=== PATIENT | female | born 1985 | race African-American/Black ===

== ENCOUNTER 2025-03-09 00:29 | Inpatient (IN) | payer OTHER, SELFPAY ==
[2025-03-09] VITALS (14 sets, daily range): BP systolic 100–154; BP diastolic 62–98; PULSE 46–98; RESP 12–18; TEMP 35.1–36.8; O2SAT 95–100; BMI 28.5
--- NOTE | ~2025-03-09 | CT_ITS ---
CLINICAL HISTORY: Pyelonephritis CT abdomen and pelvis with contrast Comparison: None provided Findings: There are mild dependent hypoventilatory changes. No focal pulmonary infiltrates or pleural effusions. No focal organ mass lesions. There is mild gallbladder distention. Pancreatic duct is borderline prominent measuring 2.2 mm. There is mild inhomogeneous enhancement of the kidneys. No perirenal fluid collections abscesses. No hydronephrosis no visualized renal calculi No bowel obstruction, pneumoperitoneum, or pneumatosis. There is a moderate colonic fecal load. The appendix is unremarkable. There are multiple intra-abdominal surgical clips. There is mild distended bladder. There is mild bladder wall thickening. Pelvic contents otherwise unremarkable. Normal appendix. There are multiple intra-abdominal surgical clips. The bones are intact. There are mild bilateral SI joint erosions in mild sclerosis [id number]. There is no free fluid. No enlarged intra-abdominal lymph nodes IMPRESSION: Mild bladder distention, mild wall thickening suspicious for cystitis correlate with clinical history and urinalysis Mild bilateral inhomogeneous renal enhancement which may be secondary to timing of the contrast bolus and/or mild pyelonephritis Nonspecific mild gallbladder distention correlate with clinical history and physical exam; if there is clinical concern for acute or chronic cholecystitis right upper quadrant ultrasound could be performed. Mild pancreatic duct dilation no visualized pancreatic lesions if there is clinical concern further evaluation with MRI abdomen MRCP could be performed. Comparison to prior imaging recommended if available Bilateral sacroiliitis Multiple intra-abdominal surgical clips Moderate colonic fecal load This document has been electronically signed by: Padilla Bai MD on 03/09/2025 05:32:36
--- NOTE | ~2025-03-09 | US_ITS ---
CLINICAL HISTORY: ?Acute cholecystitis vs ?pancreatitis, DISTENDED GB ON CT DILATED PANC DUCT --- Additional Notes or Special Instructions: To rule out non- radio opaque gallstones (not seen on CT and MRI).... to be done in AM, pt fasting after midnight US abdomen limited Comparison: CT/SR - CT ABDOMEN PELVIS W IV CON - 03/09/25 04:11 EDT Findings: The visualized pancreas is normal. The pancreatic duct currently measures up to 2.8 mm, decreased from prior reports. The common duct is 3.5 mm in diameter. The gallbladder is normal. There is no sonographic Fernandez sign. The main portal vein is antegrade. Impression: Normal gallbladder. No acute process. This document has been electronically signed by: Berto Burgess MD on 03/11/2025 10:13:40
--- NOTE | ~2025-03-09 | MR_ITS ---
EXAMINATION: MRCP HISTORY: abd pain;' dilated pancreatic duct COMPARISON: Prior CT of the abdomen and pelvis from earlier the same day TECHNIQUE: Axial gradient echo in and out of phase T1, axial T2 and fat suppressed T2, and coronal haste T2 with fat saturation images were obtained through the abdomen. 3D MRCP Reconstructed images and thick slab imaging of the biliary tree were obtained. FINDINGS: The lung bases are clear. The liver is normal in size contour and signal. No focal lesion. The gallbladder is normal. No gallstones. No intra or extrahepatic biliary duct dilatation. The common bile duct measures 4 mm. No filling defects seen. There is mild dilatation of the main pancreatic duct measuring up to 5.6 mm distally in the head of the pancreas. There is a dilated side branch duct radicle in the head of the pancreas. No filling defect. The pancreas is otherwise normal. No abnormal signal in the pancreas or peripancreatic fluid is seen. The spleen is normal. The adrenal glands are normal. The kidneys are normal. No hydronephrosis. Visualized bowel is normal. No ascites or adenopathy. No hernia. Bony structures are unremarkable. MR/MR MRCP IMPRESSION: Mild dilatation of the main pancreatic duct measuring up to 5.6 mm distally in the head of the pancreas and dilated side branch duct radical. Pancreas is otherwise normal. No filling defect or evidence of pancreatitis. Electronically signed by: Mona Malik MD 03/09/2025 04:53 PM EDT
[2025-03-09 01:06] LABS: Hematocrit 49.1 % (37.0-47.0); Hemoglobin 15.9 g/dl (12.0-16.0); Mean Corpuscular HGB Conc 32.4 g/dl (31.0-35.0); Mean Corpuscular Hemoglobin 32.2 pg (27.0-33.0); Mean Corpuscular Volume 99.4 fL (80.0-98.0); NRBC Abs Auto 0.000 X10*3/uL (0.0-0.012); NRBC Pct Auto 0.0 /100WBC (0.0-0.2); Platelet Count 238 X10*3/uL (160-400); Red Blood Count 4.94 X10*6/uL (4.20-5.50); White Blood Count 24.1 X10*3/uL (4.8-10.8)
[2025-03-09 01:08] LABS: Appearance Urine Cloudy; Glucose Urine UA Negative (Negative); PH 5.5 (5.0-9.0); Specific Gravity - Urine 1.015 (1.005-1.025); UMIC TRIGGER UACC YES
[2025-03-09 01:23] LABS: Alanine Aminotransferase 28 U/L (0-31); Albumin Level 5.2 g/dL (3.5-5.0); Alkaline Phosphatase 187 U/L (39-117); Anion Gap 19 (12-20); Aspartate Amino Transferase 31 U/L (5-31); Blood Urea Nitrogen 7 mg/dL (9-16); Calcium 10.2 mg/dL (8.4-10.2); Carbon Dioxide 23 mmol/L (22-29); Chloride 105 mmol/L (96-108); Creatinine Clr Calc Pharmacy 75.6; Estimated Glomerular Filt Rate > 60; Magnesium 2.1 mg/dL (1.6-2.6); Potassium 4.0 mmol/L (3.3-5.1); Sodium 143 mmol/L (135-145); Total Protein 9.3 g/dL (6.5-8.0); UACC Culture Trigger YES
--- NOTE | 2025-03-09 01:41 | ED_ITS ---
HPI - General Adult General Chief complaint: Weakness Stated complaint: n/v Time Seen by Provider: 03/09/25 01:07 Source: patient Limitations: no limitations History of Present Illness ED Provider: Onelia Barrett PA-C HPI narrative: 39-year-old female presents with worsening weakness throughout the day. Patient states she developed a vague headache prior to going bed this evening. She woke with shaking chills, generalized myalgias, nausea, vomiting. Denies abdominal pain, diarrhea, recent cough cold symptoms or contacts with similar symptoms. Denies dysuria, hematuria, neck pain, back pain. Related Data Home Medications ?Medication ?Instructions ?Recorded ?Confirmed multivitamin 1 tab PO DAILY 03/09/2502/15 Previous Rx's ?Medication ?Instructions ?Recorded cefuroxime axetil 500 mg tablet 500 mg PO Q12H #22 tab s 03/11/25 Allergies Allergy/AdvReac Type Severity Reaction Status Date / Time No Known Allergies Allergy Verified 03/09/25 00:45 Review of Systems 2 Review of Systems: Yes all other systems are reviewed and are negative Constitutional: Constitutional: Reports chills, Reports fatigue, Denies fever(s), Reports headache(s) and Reports malaise ENT: Reports headache(s) and Denies neck pain Cardiovascular: Cardiovascular: Denies chest pain and Denies dyspnea Respiratory: Respiratory: Denies cough and Denies dyspnea Gastrointestinal: Gastrointestinal: Denies abdominal pain, Denies diarrhea, Reports nausea and Reports vomiting Genitourinary: Genitourinary: Denies dysuria and Denies flank pain Musculoskeletal: Musculoskeletal: Denies back pain, Reports myalgias and Denies neck pain Neurologic: Reports headache(s) Endocrine: Endocrine: Reports fatigue PMFSH Past Medical History Attestation statement: The following information was validated with the patient. Social History Social History Household Members: Children Housing: Apartment Do you presently have visiting nurse or other home services: No Patient Tobacco Use Status: Current everyday Tobacco user Tobacco use type: Cigarette Cigarettes Per Day: 6 service: No Physical Exam ED Vital Signs: Vital Signs - 24 hr 03/09/25 00:42 03/09/25 00:45 03/09/25 01:45 Temperature 98.1 F 95.2 F L Pulse Rate 76 95 Respiratory Rate 18 18 Blood Pressure 129/89 129/89 Pulse Oximetry 95 99 Oxygen Delivery Method Room Air Room Air 10/24/25 02:07 Temperature Pulse Rate 93 Respiratory Rate 14 Blood Pressure 114/75 Pulse Oximetry 100 Oxygen Delivery Method Room Air BMI result Body Mass Index 28.5 Const Other: Alert, ill in appearance, shaking rigors Resp Effort & Inspection: normal respiratory effort Cardio Other: Normal peripheral perfusion General: Yes no CVA tenderness Back/Spine/Pelvis Back: no CVA tenderness Skin Other: Warm dry no rash Psych Other: Cooperative Course Reevaluation(s) Reevaluation #1: At 1:37 a.m. on March 09, a sepsis focused exam was performed. In addition to screening labs that are already in process, adding on blood cultures and lactic, we will be giving weight based IV fluid resuscitation, starting empiric ceftriaxone. The patient is hypothermic, placing on a Bear Hugger Time: 01:37 Reevaluation #2: 2:14 AM 03/09/2025 (Zulay ASHRAF): Patient was signed out to this provider at shift change, in summary the patient is a 39-year-old female presenting to the ED for evaluation of generalized weakness, headache, nausea, and nonbloody vomitus. The patient was found to have hypothermia , and laboratory evaluation revealed leukocytosis of 24,000 with bandemia, urinalysis showing large blood, positive nitrites, small leukocyte esterase, RBCs, WBCs, and 4+ bacteria. The patient reports associated bilateral low back pain, denies sudden onset or unilateral back symptoms. The patient had blood cultures and lactic acid added, and was treated with the Rocephin for suspected pyelonephritis. The patient was signed out to this provider pending results of lactic acid. Lactic acid has now resulted at 3.3. The patient has received 2 L of IV fluids, we will add on additional 500 to complete 30 cc/kilos fluid bolus. Patient will be admitted for pyelonephritis with sepsis. Medications Administered Discontinued Medications Generic Name Dose Route Start Last Admin Trade Name Freq PRN Reason Stop Dose Admin Acetaminophen 650 mg 03/09/25 02:24 03/09/25 17:40 Acetaminophen 325 Mg Tablet PO 650 mg Q6H PRN Administration Pain, Mild 1-3,fever,headache Docusate Sodium 100 mg 03/09/25 09:00 03/11/25 09:56 Docusate Sodium 100 Mg Capsule PO 100 mg BID DON Administration Enoxaparin Sodium 40 mg 03/09/25 03:00 03/11/25 02:01 Enoxaparin Sodium 40 Mg/0.4 Ml Syringe SUBCUT Not Given Q24H DON Hydromorphone HCl 0.5 mg 03/09/25 02:24 03/11/25 01:22 Hydromorphone Hcl 0.5 Mg/0.5 Ml Syringe IVPUSH 0.5 mg Q4H PRN Administration Pain, Severe (Pain Scale 7-10) Protocol Sodium Chloride 1,000 mls @ 999 mls/hr 03/09/25 01:15 03/09/25 02:12 Ns IV 03/09/25 02:15 Infused .Q1H1M DON Infusion Sodium Chloride 1,000 mls @ 999 mls/hr 03/09/25 01:15 03/09/25 02:50 Ns IV 03/09/25 02:15 Infused .Q1H1M DON Infusion Acetaminophen 1,000 mg in 100 mls @ 400 mls/hr 03/09/25 01:15 03/09/25 01:51 Ofirmev IV 03/09/25 01:29 Infused ONCE ONE Infusion Ceftriaxone Sodium 2 gm/ 50 mls @ 100 mls/hr 03/09/25 01:37 03/09/25 02:22 Sodium Chloride IV 03/09/25 02:06 Infused ONCE ONE Infusion Sodium Chloride 1,000 mls @ 999 mls/hr 03/09/25 02:30 03/09/25 03:04 Ns IV 03/09/25 03:00 Not Given .Q1H1M DON Lactated Ringer's 1,000 mls @ 100 mls/hr 03/09/25 02:30 03/10/25 16:10 Lr IVCONT Infused .Q10H DON Infusion Ceftriaxone Sodium 1 gm/ 50 mls @ 100 mls/hr 03/10/25 02:00 03/11/25 02:01 Sodium Chloride IV Infused Q24H DON Infusion Sodium Chloride 500 mls @ 500 mls/hr 03/09/25 03:01 03/09/25 04:09 Ns IV 03/09/25 04:00 Infused .Q1H ONE Infusion Metronidazole 500 mg in 100 mls @ 100 mls/hr 03/09/25 07:00 03/10/25 07:40 Flagyl IV Not Given Q8H DON Metronidazole 500 mg in 100 mls @ 100 mls/hr 03/10/25 14:00 03/11/25 08:22 Flagyl IV Infused Q8H [facility] Infusion Iohexol 100 ml 03/09/25 04:42 03/09/25 04:42 Iohexol 350 Mg/Ml 100 Ml Infus..Btl IV 03/09/25 04:43 85 ml ONCE ONE Administration Ketorolac Tromethamine 15 mg 03/09/25 01:15 03/09/25 01:35 Ketorolac Tromethamine 15 Mg/Ml Vial IVPUSH 03/09/25 01:16 15 mg ONCE ONE Administration Melatonin 6 mg 03/09/25 02:24 03/09/25 21:05 Melatonin 3 Mg Tablet PO 6 mg BEDTIME PRN Administration Insomnia Nicotine 21 mg 03/10/25 15:15 03/11/25 09:56 Nicotine 21 Mg Patch.Td24 TRANSDERMA 21 mg DAILY DON Administration Ondansetron HCl 4 mg 03/09/25 01:07 03/09/25 01:11 Ondansetron Hcl 4 Mg/2 Ml Vial IVPUSH 03/09/25 01:08 4 mg ONCE ONE Administration Sodium Chloride 3 ml 03/09/25 08:00 03/11/25 07:34 0.9 % Sodium Chloride Flush 3 Ml Syringe IVFLUSH Not Given QSHIFT [facility] Medical Decision Making Medical Decision Making [facility] Narrative: 39-year-old female presents with worsening weakness throughout the day. Patient states she developed a vague headache prior to going bed this evening. She woke with shaking chills, generalized myalgias, nausea, vomiting. Denies abdominal pain, diarrhea, recent cough cold symptoms or contacts with similar symptoms. Denies dysuria, hematuria, neck pain, back pain. No chronic issues History: Per patient I have considered the following differential diagnoses: Sepsis, urinary tract infection, renal colic, pyelonephritis, viral syndrome, meningitis Plan: Patient meets sepsis criteria, she is hypothermic at 95.2, she is basic labs in process, urine resulted in his infected, she has been treated for pyelonephritis. Adding on blood cultures lactic, adding on additional fluid resuscitation, place your on a Betsy Hugger, we will treat with ceftriaxone. I did consider meningitis given headache, however she has no neck pain, she is curl up in a ball, there was no meningeal signs. A viral panel was ordered as well in his pending. She has no back pain or abdominal pain to suggest an infected obstructing stone, imaging not warranted. Giving IV Tylenol and Toradol for her body aches and headache. I have independently reviewed the following tests: Labs: Leukocytosis of 24, left shift noted, bandemia noted 29, not anemic, appears hemoconcentrated, no electrolyte abnormality, lactic , hcg , urine infected Differential Diagnosis Differential Diagnoses: The differential diagnosis associated with the presentation includes See medical decision-making Admission/Observation Consideration of admission/observation: Escalation of care including admission/observation considered Admit Consult Healthcare Provider Management of the patient was discussed with: Hospitalist Lab Data MDM Lab Attestation statement: I reviewed the patient's lab results. 03/11/25 06:15 03/11/25 06:15 Labs: Lab Results 03/09/25 03/09/25 03/09/25 Range/Units 01:00 01:11 01:26 WBC 24.1 H (4.8-10.8) X10*3/uL RBC 4.94 (4.20-5.50) X10*6/uL Hgb 15.9 (12.0-16.0) g/dl Hct 49.1 H (37.0-47.0) % MCV 99.4 H (80.0-98.0) fL MCH 32.2 (27.0-33.0) pg MCHC 32.4 (31.0-35.0) g/dl RDW 12.2 (11.0-16.0) % Plt Count 238 (160-400) X10*3/uL MPV 10.2 (9.4-12.3) fL Immature Gran % (Auto) Cancelled Neut % (Auto) Cancelled Lymph % (Auto) Cancelled [place] % (Auto) Cancelled Eos % (Auto) Cancelled Baso % (Auto) Cancelled Lymph # (Auto) Cancelled [place] # (Auto) Cancelled Eos # (Auto) Cancelled Baso # (Auto) Cancelled Abs Immat Gran (auto) Cancelled Absolute Neuts (auto) Cancelled Absolute Nucleated RBC 0.000 (0.0-0.012) X10*3/uL Nucleated RBC % (auto) 0.0 (0.0-0.2) /100WBC Neutrophils % (Manual) 57 (45-73) % Band Neutrophils % 29 H (3-5) % Lymphocytes % (Manual) 11 L (20-40) % Atypical Lymphs % (Man) 2 (0-6) % Monocytes % (Manual) 1 L (2-11) % Abs Neuts (Manual) 20.7 H (2.0-8.3) X10*3/uL Lymphocytes # (Manual) 2.7 (1.2-4.9) X10*3/uL Atyp Lymphs # (Manual) 0.5 x10*3/uL Monocytes # (Manual) 0.2 (0.1-1.2) X10*3/uL Platelet Estimate NORMAL (NORMAL) Large Platelets PRESENT Plt Morphology Comment NOTED RBC Morphology NOTED Sodium 143 (135-145) mmol/L Potassium 4.0 (3.3-5.1) mmol/L Chloride 105 (96-108) mmol/L Carbon Dioxide 23 (22-29) mmol/L Anion Gap 19 (12-20) BUN 7 L (9-16) mg/dL Creatinine 0.92 (0.5-1.4) mg/dL Estim Creat Clear Calc 75.6 Estimated GFR > 60 Random Glucose 207 H (60-115) mg/dL Lactic Acid 3.3 H* (0.5-2.0) mmol/L Calcium 10.2 (8.4-10.2) mg/dL Magnesium 2.1 (1.6-2.6) mg/dL Total Bilirubin 0.5 (0.0-1.0) mg/dL AST 31 (5-31) U/L ALT 28 (0-31) U/L Alkaline Phosphatase 187 H (39-117) U/L Total Protein 9.3 H (6.5-8.0) g/dL Albumin 5.2 H (3.5-5.0) g/dL Beta HCG, Quant 3 mIU/mL Urine Color Dark Yellow Urine Appearance Cloudy Urine pH 5.5 (5.0-9.0) Ur Specific [place] 1.015 (1.005-1.025) Urine Protein 300 (3+) H (Neg-Trace) mg/dL Urine Glucose (UA) Negative (Negative) mg/dL Urine Ketones Trace (Negative) mg/dL Urine Blood Large (3+) H (Negative) Urine Nitrite Positive H (Negative) Ur Leukocyte Esterase Small (1+) H (Negative) Urine RBC >20 H (0-2) /HPF Urine WBC >50 H (0-5) /HPF Ur Squamous Epith Cells 11-20 (0-2) /HPF Urine Bacteria 4+ (None Seen) Hyaline Casts 6-10 (0-2) /LPF COVID-19 (REMY) Negative (Negative) COVID-19 Clin Com See Note Influenza Type A (PREMA) Negative (Negative) Influenza Type B (PREMA) Negative (Negative) Influenza A & B Note See Note Discharge Plan Discharge Clinical Impression: Sepsis, Pyelonephritis Patient Disposition: Admitted As Inpatient Interventions: Admission Worksheet (ED) Last Done: 03/09/25 15:41 Discharge Date/Time: 03/09/25 16:17
[2025-03-09 01:42] LABS: Neutrophils Percent Manual 57 % (45-73)
[2025-03-09 01:44] LABS: Atypical Lymph Absolute Manual 0.5 x10*3/uL; Atypical Lymphs Percent Manual 2 % (0-6); Band Neutrophils Percent 29 % (3-5); Lymphocytes Absolute Manual 2.7 X10*3/uL (1.2-4.9); Lymphocytes Percent Manual 11 % (20-40); Monocytes Absolute Manual 0.2 X10*3/uL (0.1-1.2); Monocytes Percent Manual 1 % (2-11); Neutrophils Absolute Manual 20.7 X10*3/uL (2.0-8.3)
[2025-03-09 01:46] LABS: RBC Morphology NOTED
[2025-03-09 01:47] LABS: Large Platelet PRESENT
[2025-03-09 02:09] LABS: IDNOW Serial# 152EDE1D; Influenza B2 Negative (Negative)
[2025-03-09 02:10] LABS: COVID-19 Test Negative (Negative); IDNOW Serial# 16C4AD1C
--- NOTE | 2025-03-09 02:10 | PC.NURSE ---
biba from home - pt reports generalized headache before going to bed - waking up around 2200 w/ increased weakness, generalized fatigue, body aches, nausea, and non-bloody vomiting. denies any abd pain/diarrhea/fevers/chills/urinary sx. 4mg zofran via EMS w/ no effect. upon ED arrival - pt a&ox4. vss and up to date aside from noting to be hypothermic via rectal temp. pt placed on bear hugger. nsr on the tools and parts attendant. 20gIV in the left AC via EMS - patent/intact. additional 20gIV placed in the right AC - labs obtained/sent to lab. pt eventually initiated as a sepsis work up (see sepsis sheet for further details) s/p critical lab values received via laboratory (29% bands and 3.3 of lactic). provider notified/aware of results. IVF/abx/medication administered per provider order. pt otherwise on RA w/o difficulty - no apparent respiratory distress. no sob/wob noted. respirations even/unlabored. daughter bedside for support. plan of care ongoing. call sevilla placed within reach.
--- NOTE | 2025-03-09 02:45 | PM.IMHP ---
History of Present Illness Date of Service: 03/09/25 Chief Complaint: Nausea/vomiting 39-year-old female with no significant past medical history presented to the hospital today with a chief complaint of generalized weakness. Patient reports over the past couple days she has been not feeling well. Has been having generalized weakness and subjective fevers. Reports having abdominal discomfort associated nausea. Patient denies any sick contacts. Denies any urinary discomfort. Patient denies any chest pain or palpitations. Denies any headaches or blurry visions. Review of all other systems is negative except mentioned above ER course: Per ER team, patient on presentation noted to be having mild abdominal tenderness; reported having nonbilious vomiting; in the ER patient noted to be hypothermic placed on Betsy Hugger with improvement in temperature. On labs noted to have leukocytosis and lactic acidosis. Concern for sepsis. Has UTI. Given antibiotics. And IV fluids. Blood pressure is stable. PMFSH Social History Household Members: Children Housing: Apartment Do you presently have visiting nurse or other home services: No Patient Tobacco Use Status: Current everyday Tobacco user Tobacco use type: Cigarette Cigarettes Per Day: 6 Smoked in Last 30 Days: Yes Patient Interested in Nicotine Replacement: Yes Use of substances other than those prescribed or required for medical reasons: No Have you been hit, kicked, punched, or otherwise hurt by someone within the past year? If so, by whom?: No Do you feel safe in your current relationship?: No Current Relationship Is there a partner from a previous relationship who is making you feel unsafe now?: No Are you made to feel afraid or neglected: No Advance Directives: No Advance Directives Information Provided: Yes Do you have a plan to hurt others: No Plan Recently lost weight without trying: No Nutrition Risks: No Nutritional Risk Patient : No Meds Allergies Allergy/AdvReac Type Severity Reaction Status Date / Time No Known Allergies Allergy Verified 03/09/25 00:45 Active Medications: Current Medications Acetaminophen (Acetaminophen 325 Mg Tablet) 650 mg PO Q6H PRN PRN Reason: Pain, Mild 1-3,fever,headache Calcium Carbonate (Calcium Carbonate 750 Mg Tab.Chew) 750 mg PO Q4H PRN PRN Reason: Heartburn Enoxaparin Sodium (Enoxaparin Sodium 40 Mg/0.4 Ml Syringe) 40 mg SUBCUT Q24H DON Hydromorphone HCl (Hydromorphone Hcl 0.5 Mg/0.5 Ml Syringe) 0.5 mg IVPUSH Q4H PRN; Protocol PRN Reason: Pain, Severe (Pain Scale 7-10) Sodium Chloride (Ns) 1,000 mls @ 999 mls/hr IV .Q1H1M DON Stop: 03/09/25 03:00 Lactated Ringer's (Lr) 1,000 mls @ 100 mls/hr IVCONT .Q10H [facility] Ceftriaxone Sodium 1 gm/ (Sodium Chloride) 50 mls @ 100 mls/hr IV Q24H [facility] Magnesium Hydroxide (Milk Of Magnesia 30 Ml Oral.Susp) 30 ml PO DAILY PRN PRN Reason: Constipation Melatonin (Melatonin 3 Mg Tablet) 6 mg PO BEDTIME PRN PRN Reason: Insomnia Sodium Chloride (0.9 % Sodium Chloride Flush 3 Ml Syringe) 3 ml IVFLUSH QSHIFT [facility] Home Medications ?Medication ?Instructions ?Recorded ?Confirmed ?Last Taken ?Type multivitamin 1 tab PO DAILY 03/09/25 03/09/25 Unknown History Physical Exam Vital Signs and Narrative: Vital Signs: Last Vital Signs Temp 95.2 F L 03/09/25 01:45 Pulse 98 03/09/25 02:26 Resp 14 03/09/25 02:26 BP 116/78 03/09/25 02:26 Pulse Ox 100 03/09/25 02:26 O2 Del Method Room Air 03/09/25 02:26 BMI result Body Mass Index 28.5 Gen: Appears be in no acute distress HEENT: NCAT, Moist mucosa. Pulmonary: Vesicular breath sounds, fair air entry CVS: Normal S1-S2 Abdomen: BS+, Soft, Nontender Extremities: Warm well perfused Neuro: Alert and awake. Results Labs 03/09/25 06:17 03/09/25 06:17 Labs: Laboratory Results - last 24 hr 03/09/25 03/09/25 03/09/25 01:00 01:11 01:26 MCV 99.4 H MCH 32.2 MCHC 32.4 RDW 12.2 Plt Count 238 MPV 10.2 Immature Gran % (Auto) Cancelled Neut % (Auto) Cancelled Lymph % (Auto) Cancelled [place] % (Auto) Cancelled Eos % (Auto) Cancelled Baso % (Auto) Cancelled Lymph # (Auto) Cancelled [place] # (Auto) Cancelled Eos # (Auto) Cancelled Baso # (Auto) Cancelled Abs Immat Gran (auto) Cancelled Absolute Neuts (auto) Cancelled Absolute Nucleated RBC 0.000 Nucleated RBC % (auto) 0.0 Neutrophils % (Manual) 57 Band Neutrophils % 29 H Lymphocytes % (Manual) 11 L Atypical Lymphs % (Man) 2 Monocytes % (Manual) 1 L Abs Neuts (Manual) 20.7 H Lymphocytes # (Manual) 2.7 Atyp Lymphs # (Manual) 0.5 Monocytes # (Manual) 0.2 Platelet Estimate NORMAL Large Platelets PRESENT Plt Morphology Comment NOTED RBC Morphology NOTED Anion Gap 19 Estim Creat Clear Calc 75.6 Estimated GFR > 60 Random Glucose 207 H Lactic Acid 3.3 H* Calcium 10.2 Magnesium 2.1 Total Bilirubin 0.5 AST 31 ALT 28 Alkaline Phosphatase 187 H Total Protein 9.3 H Albumin 5.2 H Beta HCG, Quant 3 Urine Color Dark Yellow Urine Appearance Cloudy Urine pH 5.5 Ur Specific [place] 1.015 Urine Protein 300 (3+) H Urine Glucose (UA) Negative Urine Ketones Trace Urine Blood Large (3+) H Urine Nitrite Positive H Ur Leukocyte Esterase Small (1+) H Urine RBC >20 H Urine WBC >50 H Ur Squamous Epith Cells 11-20 Urine Bacteria 4+ Hyaline Casts 6-10 COVID-19 (REMY) Negative COVID-19 Clin Com See Note Influenza Type A (PREMA) Negative Influenza Type B (PREMA) Negative Influenza A & B Note See Note Assessment and Plan (1) Sepsis: Status: Acute Plan 39-year-old female with no significant past medical history presented to the hospital today with a chief complaint of generalized weakness. Admitted for following Sepsis: UTI: Suspected cholecystitis: Dilated pancreatic duct: CT abdomen pelvis showed findings concerning for cystitis/pyelonephritis. Also noted nonspecific gallbladder wall thickening. Suspected acute cholecystitis. Also noted pancreatic ductal dilatation-recommended MRCP MRCP ordered Continue ceftriaxone, Flagyl Follow-up cultures Pain control IV fluids Consulted general surgery and GI Constipation: Bowel regimen Bilateral sacroiliitis: Pain control High-protein: Likely in the setting of dehydration. Patient's calcium and creatinine within normal limits. If continues to be high will defer to the day team to pursue further workup DVT prophylaxis: Lovenox Code status: Full code Quality Stroke Does the patient have a stroke diagnosis?: No VTE Prior VTE?: No VTE Risk Level:: Medical - moderate - high VTE Device Contraindication: Treatment Not Indicated VTE Drug Contraindication: N/A - Med Ordered
--- OUTSIDE RECORDS SUMMARY | 2025-03-09 02:50 | XMS_ITS | Clinical Summary ---
Author Organization [facility] ity Address [address] [place] [address] Care Team Providers Care Beauty Parlor Cleaner Name Role Phone Marissa Hand MD Primary Care Provider Social History Tobacco Use Types Packs/Day Years Used Date Smoking Tobacco: Never Assessed Comments Unknown Sex and Gender Information Value Date Recorded Sex Assigned at Not on file Legal Sex Female 8:31 PM EST Gender Identity Not on file Sexual Orientation Not on file Plan of Treatment Health Maintenance Due Date Last Done Comments DTaP,Tdap,and Td Vaccines (1 - Tdap) 2004 Hepatitis B Vaccines (1 of 3 - 19+ 3-dose series) 2004 Cervical Cancer Screening: P ap Smear 2006 HPV Vaccines (1 - 3-dose SCD M series) 2012 Depression Screening 05/17/2024 COVID-19 Vaccine (1 - 2023-2 5 season) 2025 Influenza Vaccine (#1) 2025 RSV Immunization Adult Patie nts (1 - 1-dose 75+ series) 2060 HIB Vaccines Aged Out No longer eligi ble based on patient's age to complete this topic Hepatitis A Vaccines Aged Out No long er eligible based on patient's age to complete this topic IPV Vaccines Aged Out No longer eligi ble based on patient's age to complete this topic MMR Vaccines Aged Out No longer eligi ble based on patient's age to complete this topic Meningococcal ACWY Vaccine Aged Out N o longer eligible based on patient's age to complete this topic Meningococcal B Vaccine Aged Out No l onger eligible based on patient's age to complete this topic Pneumococcal Vaccine: Pediat rics (0 to 5 Years) and At-Risk Patients (6 to 49 Years) Aged Out No longer eligible b ased on patient's age to complete this topic RSV Immunization Patients Un jory 20 months Aged Out No longer eligible b ased on patient's age to complete this topic Varicella Vaccines Aged Out No longer eligible based on patient's age to complete this topic Care Teams Beauty Parlor Cleaner Relationship Specialty Start Date End Date Marissa Hand MD PCP - General Internal Medicine 05/03/17
[2025-03-09] MEDS: Lactated Ringers 1,000 ML 100 ML IVCONT ×3 (02:56→23:13)
--- NOTE | 2025-03-09 03:09 | PC.NURSE ---
sharmaine pérez removed d/t most recent rectal temp displaying 98.1. all other vss and up to date. nsr on the inker and opaquer. pt reporting decreased generalized body aches s/p medication administration. additional IVF and LR infusing per provider order. pt pending admission/bed assignment. plan of care ongoing. call sevilla placed within reach.
[2025-03-09 03:30] LABS: Reflex Lactate? Lactic Acid Added
[2025-03-09 04:28] LABS: ~Lactic Acid-LAB USE ONLY 2.2 mmol/L (0.5-2.0)
--- NOTE | 2025-03-09 04:30 | PC.NURSE ---
critical lactic acid of 2.2 received at this time - hospitalist notified/aware. no new orders at this time. LR continues to infuse at 100mls/hr. resting in no apparent distress w/ lights dimmed. respirations remain even/unlabored. plan of care ongoing. call sevilla placed within reach.
[2025-03-09] MEDS: iohexoL 350 MG/ML 100 ML INFUS..BTL IV (04:42)
[2025-03-09 05:58] LABS: Reflex Lactate? 2 Y
[2025-03-09 06:21] LABS: MANUAL DIFF FLAG NO
[2025-03-09 06:29] LABS: Hematocrit 33.6 % (37.0-47.0); Hemoglobin 11.3 g/dl (12.0-16.0); Imm Gran Abs Auto 0.04 X10*3/uL (0.00-0.03); Imm Gran Pct Auto 0.3 % (0.0-0.4); Lymphocytes Absolute Auto 0.7 X10*3/uL (1.2-4.9); Mean Corpuscular HGB Conc 33.6 g/dl (31.0-35.0); Mean Corpuscular Hemoglobin 32.3 pg (27.0-33.0); Mean Corpuscular Volume 96.0 fL (80.0-98.0); NRBC Abs Auto 0.000 X10*3/uL (0.0-0.012); NRBC Pct Auto 0.0 /100WBC (0.0-0.2); Platelet Count 161 X10*3/uL (160-400); Red Blood Count 3.50 X10*6/uL (4.20-5.50); White Blood Count 15.1 X10*3/uL (4.8-10.8)
[2025-03-09 06:36] LABS: ~Lactic Acid-LAB USE ONLY 1.8 mmol/L (0.5-2.0)
[2025-03-09 06:39] LABS: Anion Gap 10 (12-20)
[2025-03-09 06:41] LABS: Alanine Aminotransferase 15 U/L (0-31); Albumin Level 3.3 g/dL (3.5-5.0); Alkaline Phosphatase 87 U/L (39-117); Aspartate Amino Transferase 18 U/L (5-31); Blood Urea Nitrogen 9 mg/dL (9-16); Calcium 7.8 mg/dL (8.4-10.2); Carbon Dioxide 24 mmol/L (22-29); Chloride 110 mmol/L (96-108); Creatinine Clr Calc Pharmacy 107.0; Estimated Glomerular Filt Rate > 60; Lipase 13 U/L (8-78); Potassium 4.0 mmol/L (3.3-5.1); Sodium 140 mmol/L (135-145); Total Protein 5.9 g/dL (6.5-8.0)
[2025-03-09] MEDS: metroNIDAZOLE/NS 500 MG/100 ML PIGGYBACK 100 MG IV ×3 (06:41→23:12)
--- NOTE | 2025-03-09 07:21 | PC.NURSE ---
This Rn assumed care of patyient @ 0700 Patient A&O x 3 Patient able to ambulate to bathroom independently Denies SOB Patient c/o ABD pain rated 7/10 Adminstered PRN dilaudid per JUL, effectiveness pending BP slightly soft 100/70, no signs of distress Child at bedside LR running @ 100 ml/hr, flagyl also running Patient awaiting bed assignment
--- NOTE | 2025-03-09 07:27 | P.CNGI_ITS ---
History of Present Illness Data of Consult Service Date: 03/09/25 Requesting physician: Yuriy Miguel Primary Care Provider: Unknown Physician HPI Reason for consult: dilated pancreatic duct 39 YF with no significant past medical history seen at [facility] on 03/09/25 with a chief complaint of generalized weakness. Patient reports over the past couple days she has been not feeling well. Has been having generalized weakness and subjective fevers. Reports having abdominal discomfort associated nausea. Patient denies any sick contacts. Denies any urinary discomfort. Patient denies any chest pain or palpitations. Denies any headaches or blurry visions. Pt denies past or family hx of pancreatic disease. ER course: Per ER team, patient on presentation noted to be having mild abdominal tenderness; reported having nonbilious vomiting; in the ER patient noted to be hypothermic placed on Betsy Hugger with improvement in temperature. On labs noted to have leukocytosis and lactic acidosis. Concern for sepsis. Has UTI. Given antibiotics. And IV fluids. Blood pressure is stable. 03/09/[address] SCAN SHOWED: Mild bladder distention, mild wall thickening suspicious for cystitis correlate with clinical history and urinalysis Mild bilateral inhomogeneous renal enhancement which may be secondary to timing of the contrast bolus and/or mild pyelonephritis Nonspecific mild gallbladder distention correlate with clinical history and physical exam; if there is clinical concern for acute or chronic cholecystitis right upper quadrant ultrasound could be performed. Mild pancreatic duct dilation no visualized pancreatic lesions if there is clinical concern further evaluation with MRI abdomen MRCP could be performed. Comparison to prior imaging recommended if available Bilateral sacroiliitis Multiple intra-abdominal surgical clips Moderate colonic fecal load Review of Systems 2 Review of Systems: Yes all other systems are reviewed and are negative [facility] Social History Social History Household Members: Children Housing: Apartment Do you presently have visiting nurse or other home services: No Patient Tobacco Use Status: Current everyday Tobacco user Tobacco use type: Cigarette Cigarettes Per Day: 6 service: No Meds Allergies Allergy/AdvReac Type Severity Reaction Status Date / Time No Known Allergies Allergy Verified 03/09/25 00:45 Active Medications: Current Medications Acetaminophen (Acetaminophen 325 Mg Tablet) 650 mg PO Q6H PRN PRN Reason: Pain, Mild 1-3,fever,headache Calcium Carbonate (Calcium Carbonate 750 Mg Tab.Chew) 750 mg PO Q4H PRN PRN Reason: Heartburn Docusate Sodium (Docusate Sodium 100 Mg Capsule) 100 mg PO BID DON Enoxaparin Sodium (Enoxaparin Sodium 40 Mg/0.4 Ml Syringe) 40 mg SUBCUT Q24H [facility] Last Admin: 03/09/25 02:57 Dose: Not Given Hydromorphone HCl (Hydromorphone Hcl 0.5 Mg/0.5 Ml Syringe) 0.5 mg IVPUSH Q4H PRN; Protocol PRN Reason: Pain, Severe (Pain Scale 7-10) Last Admin: 03/09/25 07:19 Dose: 0.5 mg Lactated Ringer's (Lr) 1,000 mls @ 100 mls/hr IVCONT .Q10H [facility] Last Admin: 03/09/25 02:56 Dose: 100 mls/hr Ceftriaxone Sodium 1 gm/ (Sodium Chloride) 50 mls @ 100 mls/hr IV Q24H DON Metronidazole (Flagyl) 500 mg in 100 mls @ 100 mls/hr IV Q8H [facility] Last Admin: 03/09/25 06:41 Dose: 100 mls/hr Magnesium Hydroxide (Milk Of Magnesia 30 Ml Oral.Susp) 30 ml PO DAILY PRN PRN Reason: Constipation Melatonin (Melatonin 3 Mg Tablet) 6 mg PO BEDTIME PRN PRN Reason: Insomnia Polyethylene Glycol (Polyethylene Glycol 3350 17 Gm Powd.Pack) 17 gm PO DAILY PRN PRN Reason: Congestion Senna (Sennosides 8.6 Mg Tablet) 17.2 mg PO BEDTIME PRN PRN Reason: Constipation Sodium Chloride (0.9 % Sodium Chloride Flush 3 Ml Syringe) 3 ml IVFLUSH QSHIFT [facility] Last Admin: 03/09/25 07:01 Dose: Not Given Home Medications ?Medication ?Instructions ?Recorded ?Confirmed ?Last Taken ?Type multivitamin 1 tab PO DAILY 03/09/2502/15 Unknown History Physical Exam 2 Vital Signs: Vital Signs: Last Vital Signs Temp 98.1 F 03/09/25 03:07 Pulse 69 03/09/25 06:31 Resp 12 03/09/25 07:19 BP 107/78 03/09/25 06:31 Pulse Ox 99 03/09/25 06:31 O2 Del Method Room Air 03/09/25 06:31 BMI result Body Mass Index 28.5 Const: General: no acute distress and ill appearing Nutritional Appearance: overweight Orientation/consciousness: patient oriented x3 HEENT: Head: Yes normal to inspection Ears: hearing grossly normal bilaterally Eyes: Sclerae: sclerae normal Pupils: Equal, round and reactive pupils present Neck: Neck: Yes normal visual inspection Chest: Chest palpation & inspection: normal inspection of the chest Resp: Effort & Inspection: normal respiratory effort Auscultation: clear to auscultation bilaterally Cardio: Palpation: normal PMI Rate: regular rate Rhythm: regular rhythm Heart sounds: S1 normal heart sound present, S2 normal heart sound present and no murmurs GI: Inspection: Yes scar (scar of past Lap hernia surgery) Palpation (GI): Soft to palpation, Tenderness to palpation present (GI) (epigastrium and left flank) and No hepatosplenomegaly present Auscultation: normal bowel sounds Rectal Exam - Female: deferred Skin: General skin exam: no rashes or lesions noted Neuro: General: patient oriented x3, gait normal and moves all extremities Cranial nerves: Yes Equal, round and reactive pupils present Psych: Appearance: grossly normal Mental Status: mental status grossly normal Results Labs 03/11/25 06:15 03/11/25 06:15 Labs: Short CBC 03/09/25 03/09/25 Range/Units 01:00 06:17 WBC 24.1 H 15.1 H (4.8-10.8) X10*3/uL Hgb 15.9 11.3 L D (12.0-16.0) g/dl Hct 49.1 H 33.6 L D (37.0-47.0) % Plt Count 238 161 D (160-400) X10*3/uL BMP 03/09/25 03/09/25 01:00 06:17 Sodium 143 140 Potassium 4.0 4.0 Chloride 105 110 H Carbon Dioxide 23 24 BUN 7 L 9 Creatinine 0.92 0.65 Calcium 10.2 7.8 L D Liver Function 03/09/25 03/09/25 Range/Units 01:00 06:17 Total Bilirubin 0.5 0.5 (0.0-1.0) mg/dL AST 31 18 (5-31) U/L ALT 28 15 (0-31) U/L Alkaline Phosphatase 187 H 87 (39-117) U/L Albumin 5.2 H 3.3 L (3.5-5.0) g/dL Urine 03/09/25 Range/Units 01:00 Urine Color Dark Yellow Urine Appearance Cloudy Urine pH 5.5 (5.0-9.0) Ur Specific [employer] 1.015 (1.005-1.025) Urine Protein 300 (3+) H (Neg-Trace) mg/dL Urine Glucose (UA) Negative (Negative) mg/dL Assessment and Plan (1) Sepsis: Status: Acute (2) Dilated pancreatic duct: Status: Acute Plan 39 YF admitted to [facility] on 03/09/25 with sepsis due to UTI/pyelonephritis. Incidental finding of dilated PD on CT scan. 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 03/09/25 MRCP SHOWED: Mild dilatation of the main pancreatic duct measuring up to 5.6 mm distally in the head of the pancreas and dilated side branch duct radical. Pancreas is otherwise normal. No filling defect or evidence of pancreatitis. RECOMMENDATIONS: 1. Agree with pain medication, antiemetics and IV antibiotics. 2. Check CEA (normal) and CA 19-9 (slightly elevated at 47) with am labs 3. Clear liquid diet tonight and advance diet as tolerated 4. Abd US to rule out non-radio opaque gallstones (not seen on CT and MRI) 5. Further evaluation of pancreas with EUS as an outpatient once sepsis has resolved. Urgent referral was sent to [facility] to schedule patient for an endoscopic ultrasound. Procedures Date of Service Date of Service: 03/14/25
--- NOTE | 2025-03-09 08:00 | PHA.MEDREC ---
Pharmacy Consult ? Medication Reconciliation Pharmacy has completed the medication reconciliation. Spoke with patient to confirm.
--- NOTE | 2025-03-09 08:27 | PC.NURSE ---
Patient made NPO for MRI MRI screening form completed and faxed Patient informed about NPO status Provider aware
--- NOTE | 2025-03-09 09:57 | MHC.CM.PN ---
Attempted to meet with patient in regards to discharge planning. Patient currently sleeping. No family present. Will attempt to meet again. Continue to monitor for d/c needs.
--- NOTE | 2025-03-09 14:43 | PC.NURSE ---
pt taken to MRI by patient transport- flagyl to be hung upon return to department
--- NOTE | 2025-03-09 18:07 | P.EN_ITS ---
Event Note Date of Service: 03/09/25 Event Note: Pt admitted earlier in the day for pyelonephritis with sepsis with concern for possible pancreatitis. Pt underwent MRCP that showed mild dilation main pancreatic duct measuring up to 5.6 mm without any filling deficit or evidence of pancreatitis. Patient's lipase WNL. Pt currently still with lower and left- sided abdominal pain. Suspicion for pancreatitis low, and will advance patient's diet to clear liquids. Agree with rest of initial admitting plan and assessment. Time Spent With Patient Time: Total time managing care of this patient today ____ minutes.
[2025-03-09] MEDS: 0.9 % Sodium Chloride Flush 3 ML SYRINGE IVFLUSH (23:40)
[2025-03-10 03:52] VITALS: BP 136/86; PULSE 70; RESP 17; TEMP 36.1; O2SAT 99
[2025-03-10 07:19] LABS: Carcinoembryonic Antigen 3.00 ng/mL
[2025-03-10 07:41] VITALS: BP 136/83; PULSE 56; RESP 16; TEMP 36.3; O2SAT 100
[2025-03-10] MEDS: Lactated Ringers 1,000 ML 100 ML IVCONT (10:23)
--- NOTE | 2025-03-10 13:19 | P.PNIM_ITS ---
Subjective Subjective Date of Service: 03/10/25 Interval History: Improvement in abdominal pain No nausea or vomiting Was able to tolerate some Jell-O Review of Systems Review of Systems: Yes all other systems are reviewed and are negative Physical Exam 2 Exam: Exam: General: AOx3, no acute distress Resp: CTA bilaterally CVS: S1, S2, RRR GI: +BS, no distention. Soft, still with some left-sided tenderness, though improved. Back: Left CVA tenderness Skin: Warm, dry Neuro: Cranial nerves II-XII grossly intact bilaterally. Motor grossly intact bilaterally Extremities: No edema Psych: Appropriate affect Vital Signs: Vital Signs: Last Vital Signs Temp 97.3 F 03/10/25 07:41 Pulse 56 03/10/25 07:41 Resp 16 03/10/25 07:41 BP 136/83 03/10/25 07:41 Pulse Ox 100 03/10/25 07:41 O2 Del Method Room Air 03/10/25 07:41 BMI result Body Mass Index 28.5 Objective Data Active Medications Acetaminophen (Acetaminophen 325 Mg Tablet) 650 mg PO Q6H PRN PRN Reason: Pain, Mild 1-3,fever,headache Last Admin: 03/09/25 17:40 Dose: 650 mg Documented By: HAWAFAMy Calcium Carbonate (Calcium Carbonate 750 Mg Tab.Chew) 750 mg PO Q4H PRN PRN Reason: Heartburn Docusate Sodium (Docusate Sodium 100 Mg Capsule) 100 mg PO BID [facility] Last Admin: 03/10/25 09:23 Dose: 100 mg Documented By: KEO Enoxaparin Sodium (Enoxaparin Sodium 40 Mg/0.4 Ml Syringe) 40 mg SUBCUT Q24H [facility] Last Admin: 03/10/25 01:43 Dose: 40 mg Documented By: LAUREN Hydromorphone HCl (Hydromorphone Hcl 0.5 Mg/0.5 Ml Syringe) 0.5 mg IVPUSH Q4H PRN; Protocol PRN Reason: Pain, Severe (Pain Scale 7-10) Last Admin: 03/10/25 09:23 Dose: 0.5 mg Documented By: KEO Ceftriaxone Sodium 1 gm/ (Sodium Chloride) 50 mls @ 100 mls/hr IV Q24H [facility] Last Infusion: 03/10/25 02:15 Dose: Infused Documented By: LAUREN Magnesium Hydroxide (Milk Of Magnesia 30 Ml Oral.Susp) 30 ml PO DAILY PRN PRN Reason: Constipation Melatonin (Melatonin 3 Mg Tablet) 6 mg PO BEDTIME PRN PRN Reason: Insomnia Last Admin: 03/09/25 21:05 Dose: 6 mg Documented By: LAUREN Polyethylene Glycol (Polyethylene Glycol 3350 17 Gm Powd.Pack) 17 gm PO DAILY PRN PRN Reason: Congestion Senna (Sennosides 8.6 Mg Tablet) 17.2 mg PO BEDTIME PRN PRN Reason: Constipation Sodium Chloride (0.9 % Sodium Chloride Flush 3 Ml Syringe) 3 ml IVFLUSH QSHIFT DON Last Admin: 03/10/25 09:17 Dose: Not Given Documented By: KEO Non-Admin Reason: IV Running Labs 03/09/25 06:17 03/09/25 06:17 Labs: Laboratory Results - last 24 hr 03/10/25 05:12 Carcinoembryonic Ag 3.00 Microbiology Microbiology Results: Microbiology 03/09/25 02:01 Urine Culture - Final Urine clean catch No growth. 03/09/25 01:41 Blood Culture - Preliminary Blood - Venous No growth after 24 hours. 03/09/25 01:26 Blood Culture - Preliminary Blood - Venous No growth after 24 hours. Assessment and Plan (1) Pyelonephritis: Status: Acute (2) Sepsis: Status: Acute Plan 39-year-old female with no significant past medical history presented to the hospital today with a chief complaint of generalized weakness. Admitted for following Likely acute pyelonephritis with SIRS with severe features Met sirs criteria with tachycardia, leukocytosis, lactic acid 3.3 CT abdomen pelvis showed findings concerning for cystitis/pyelonephritis UA looks grossly positive with nitrites, leukocyte esterase, WBCs >50, 4+ bacteria However, urine culture without growth Will continue to empirically treat as pyelo with ceftriaxone, day 2 Analgesics for pain management Question of acute cholecystitis vs pancreatitis CT also showing nonspecific gallbladder wall thickening and pancreatic duct dilation MRCP showed mild dilation of main pancreatic duct up to 5.6 mm, otherwise normal; no evidence of pancreatitis LFTs, lipase WNL Will get US of abdomen to check for radio-opaque stones Continue empiric ceftriaxone, Flagyl BCx negative at 24 hours Pain control, IV fluids as above GI consulted, recommend checking CEA and CA 19, as well as further evaluation of pancreas with EUS outpatient Full liquid diet for now, advance as tolerated Constipation: Bowel regimen Bilateral sacroiliitis: Pain control DVT prophylaxis: Lovenox Code status: Full code Pt will require continued hospitalization for treatment and further evaluation of likely acute pyelonephritis with sepsis vs acute cholecystitis vs pancreatitis. Pt will require an additional imaging as well as treatment with IV antibiotics. Quality Stroke Does the patient have a stroke diagnosis?: No VTE Prior VTE?: No VTE Risk Level:: Medical - moderate - high VTE Device Contraindication: Treatment Not Indicated VTE Drug Contraindication: N/A - Med Ordered
[2025-03-10 16:00] VITALS: BP 127/80; PULSE 54; RESP 12; TEMP 36.5; O2SAT 99
--- NOTE | 2025-03-10 16:01 | MHC.CM.PN ---
EMR REVIEWED, PT W/UTI/SEPSIS/DIALTED PANCREATIC DUCT, CM MET W/PT WHO REPORTS SHE LIVES W/HER 4 CHILDREN AND DOG, PT IS FULLY INDEP W/ALL CARE, NO DME/SERVICES, PT'S GOAL IS DC HOME. PT CONFIRMS SHE DOES NOT HAVE A PCP, [facility] PROVIDED. PT REPORTS HER HCP IS PT'S MOTHER/PRIMARY CONTACT SELENE MITCHELL, # ON FILE, COPY HAS BEEN REQUESTED.
[2025-03-10] MEDS: metroNIDAZOLE/NS 500 MG/100 ML PIGGYBACK 100 MG IV ×2 (16:05→21:50)
[2025-03-10] MEDS: Nicotine 21 MG PATCH.TD24 TRANSDERMA (16:08)
--- NOTE | 2025-03-10 18:41 | PM.CNGS ---
History of Present Illness Consult details Consult date: 03/10/25 Narrative: 39-year-old female with no significant past medical history presented to the hospital with a chief complaint of generalized weakness. Patient reports over the past couple days she has been not feeling well. On presentation her white count was 20 something 1000 in his decreased today. Has been having generalized weakness and subjective fevers. Reports having abdominal discomfort associated nausea. On presentation she was noted to have SIRS she was tachycardic elevated white count and CT scan of her abdomen and pelvis showed changes that maybe consistent with pyelonephritis. Her urinalysis was positive for infection. CT scan also showed her gallbladder to be distended and she does report feeling nauseous and vomiting with some diffuse abdominal pain. Patient had MRCP which did not reveal any gallstones and no gallbladder wall thickening or surrounding fluid etc.. We are being asked to consult for question cholecystitis. Patient does say that is sometimes after eating she does have some abdominal discomfort maybe some mild nausea. Patient's mother says that the patient's uncle had his gallbladder removed. Patient today was able to eat regular diet consisting of [employer] hamburger without any increased abdominal pain. She is being empirically treated for pyelonephritis with IV antibiotics. There was also question of her dilated pancreatic duct but the MRCP carried out today did not reveal any this being significant Review of Systems Review of Systems: Yes all other systems are reviewed and are negative [facility] Social History Social History Household Members: Children Housing: Apartment Do you presently have visiting nurse or other home services: No Patient Tobacco Use Status: Current everyday Tobacco user Tobacco use type: Cigarette Cigarettes Per Day: 6 Smoked in Last 30 Days: Yes Patient Interested in Nicotine Replacement: Yes Use of substances other than those prescribed or required for medical reasons: No Currently Displaying Signs/Symptoms of Drug Intoxication Withdrawal: No Have you been hit, kicked, punched, or otherwise hurt by someone within the past year? If so, by whom?: No Do you feel safe in your current relationship?: No Current Relationship Is there a partner from a previous relationship who is making you feel unsafe now?: No Are you made to feel afraid or neglected: No Advance Directives: No Advance Directives Information Provided: Yes Do you have a plan to hurt others: No Plan Recently lost weight without trying: No Nutrition Risks: No Nutritional Risk Patient : No service: No Meds Allergies Allergy/AdvReac Type Severity Reaction Status Date / Time No Known Allergies Allergy Verified 03/09/25 00:45 Active Medications: Current Medications Acetaminophen (Acetaminophen 325 Mg Tablet) 650 mg PO Q6H PRN PRN Reason: Pain, Mild 1-3,fever,headache Last Admin: 03/09/25 17:40 Dose: 650 mg Calcium Carbonate (Calcium Carbonate 750 Mg Tab.Chew) 750 mg PO Q4H PRN PRN Reason: Heartburn Docusate Sodium (Docusate Sodium 100 Mg Capsule) 100 mg PO BID [facility] Last Admin: 03/10/25 09:23 Dose: 100 mg Enoxaparin Sodium (Enoxaparin Sodium 40 Mg/0.4 Ml Syringe) 40 mg SUBCUT Q24H [facility] Last Admin: 03/10/25 01:43 Dose: 40 mg Hydromorphone HCl (Hydromorphone Hcl 0.5 Mg/0.5 Ml Syringe) 0.5 mg IVPUSH Q4H PRN; Protocol PRN Reason: Pain, Severe (Pain Scale 7-10) Last Admin: 03/10/25 17:38 Dose: 0.5 mg Ceftriaxone Sodium 1 gm/ (Sodium Chloride) 50 mls @ 100 mls/hr IV Q24H [facility] Last Infusion: 03/10/25 02:15 Dose: Infused Metronidazole (Flagyl) 500 mg in 100 mls @ 100 mls/hr IV Q8H [facility] Last Infusion: 03/10/25 17:20 Dose: Infused Magnesium Hydroxide (Milk Of Magnesia 30 Ml Oral.Susp) 30 ml PO DAILY PRN PRN Reason: Constipation Melatonin (Melatonin 3 Mg Tablet) 6 mg PO BEDTIME PRN PRN Reason: Insomnia Last Admin: 03/09/25 21:05 Dose: 6 mg Nicotine (Nicotine 21 Mg Patch.Td24) 21 mg TRANSDERMA DAILY [facility] Last Admin: 03/10/25 16:08 Dose: 21 mg Polyethylene Glycol (Polyethylene Glycol 3350 17 Gm Powd.Pack) 17 gm PO DAILY PRN PRN Reason: Congestion Senna (Sennosides 8.6 Mg Tablet) 17.2 mg PO BEDTIME PRN PRN Reason: Constipation Sodium Chloride (0.9 % Sodium Chloride Flush 3 Ml Syringe) 3 ml IVFLUSH QSHIFT [facility] Last Admin: 03/10/25 16:09 Dose: Not Given Home Medications ?Medication ?Instructions ?Recorded ?Confirmed ?Last Taken ?Type multivitamin 1 tab PO DAILY 03/09/25 03/09/25 Unknown History Physical Exam Vital Signs: Vital Signs: Last Vital Signs Temp 97.7 F 03/10/25 16:00 Pulse 54 03/10/25 16:00 Resp 12 03/10/25 16:00 BP 127/80 03/10/25 16:00 Pulse Ox 99 03/10/25 16:00 O2 Del Method Room Air 03/10/25 16:00 BMI result Body Mass Index 28.5 Const: General: cooperative, healthy appearing, comfortable and no acute distress Orientation/consciousness: patient oriented x3 Cardio: Rate: regular rate Rhythm: regular rhythm GI: Other: Abdomen is soft nondistended she is tender in the right upper quadrant and in the lower abdomen both sides. Not so much in the left upper quadrant. She does have right CVA tenderness. Active bowel sounds Skin: Other: Nonicteric Neuro: General: patient oriented x3 Psych: Appearance: grossly normal Mental Status: mental status grossly normal Speech and movement: Normal speech and movement present Affect: normal affect Attitude: cooperative Thought process: Normal thought process present Thought content: Normal thought content present Insight: Good insight present (Psych) Judgement: Good judgement present (Psych) Results Labs 03/09/25 06:17 03/09/25 06:17 Labs: Urine 03/09/25 Range/Units 01:00 Urine Color Dark Yellow Urine Appearance Cloudy Urine pH 5.5 (5.0-9.0) Ur Specific [place] 1.015 (1.005-1.025) Urine Protein 300 (3+) H (Neg-Trace) mg/dL Urine Glucose (UA) Negative (Negative) mg/dL All other labs normal. Imaging Abdomen CT scan report/results: report reviewed and image reviewed CT scan - pelvis: report reviewed and image reviewed Additional studies: Signed with Addenda Patient: Wilma Richey MR#: [id number] : 1985 Acct:[id number] Age/Sex: 39 / F ADM Date: 03/09/25 Loc: [facility]: Yuriy Miguel MD Ordering Physician: Gerald Stone PA-C Date of Service: 03/09/25 Procedure(s): CT abdomen pelvis w IV con Accession Number(s): [id number] cc: Gerald Stone PA-C; Physician,Unknown ~ Report Number: [id number]: Total DLP = 708.00 mGy-cm Reason for Exam: Pyelonephritis ADDENDUMThis document has been electronically signed by: Padilla Bai MD on 03/09/2025 05:32:36 ADDENDUM: Receipt of this report by the clinical staff was confirmed with DR Corea on Mar 09, 2025 05:46:00 EDT. This document has been electronically signed by: Vicenta Edwards on 03/09/2025 05:47:46 Addendum Dictated By: Padilla Bai MD Addendum Signed By: <Electronically signed by Padilla Bai MD in OV> 03/09/2548 Addendum Cosigned By: DD/ TD/TT: 03/09/25 CLINICAL HISTORY: Pyelonephritis CT abdomen and pelvis with contrast Comparison: None provided Findings: There are mild dependent hypoventilatory changes. No focal pulmonary infiltrates or pleural effusions. No focal organ mass lesions. There is mild gallbladder distention. Pancreatic duct is borderline prominent measuring 2.2 mm. There is mild inhomogeneous enhancement of the kidneys. No perirenal fluid collections abscesses. No hydronephrosis no visualized renal calculi No bowel obstruction, pneumoperitoneum, or pneumatosis. There is a moderate colonic fecal load. The appendix is unremarkable. There are multiple intra-abdominal surgical clips. There is mild distended bladder. There is mild bladder wall thickening. Pelvic contents otherwise unremarkable. Normal appendix. There are multiple intra-abdominal surgical clips. The bones are intact. There are mild bilateral SI joint erosions in mild sclerosis [id number]. There is no free fluid. No enlarged intra-abdominal lymph nodes IMPRESSION: Mild bladder distention, mild wall thickening suspicious for cystitis correlate with clinical history and urinalysis Mild bilateral inhomogeneous renal enhancement which may be secondary to timing of the contrast bolus and/or mild pyelonephritis Nonspecific mild gallbladder distention correlate with clinical history and physical exam; if there is clinical concern for acute or chronic cholecystitis right upper quadrant ultrasound could be performed. Mild pancreatic duct dilation no visualized pancreatic lesions if there is clinical concern further evaluation with MRI abdomen MRCP could be performed. 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: Signed with Addenda Patient: Wilma Richey MR#: [id number] : 1985 Acct:[id number] Age/Sex: 39 / F ADM Date: 03/09/25 Loc: [facility] [place]: Yuriy Miguel MD Ordering Physician: Gerald Stone PA-C Date of Service: 03/09/25 Procedure(s): CT abdomen pelvis w IV con Accession Number(s): [id number] cc: Gerald Stone PA-C; Physician,Unknown ~ Report Number: [id number]: Total DLP = 708.00 mGy-cm Reason for Exam: Pyelonephritis ADDENDUMThis document has been electronically signed by: Padilla Bai MD on 03/09/2025 05:32:36 ADDENDUM: Receipt of this report by the clinical staff was confirmed with DR Corea on Mar 09, 2025 05:46:00 EDT. This document has been electronically signed by: Vicenta Edwards on 03/09/2025 05:47:46 Addendum Dictated By: Padilla Bai MD Addendum Signed By: <Electronically signed by Padilla Bai MD in OV> 03/09/2548 Addendum Cosigned By: DD/ TD/TT: 03/09/25 CLINICAL HISTORY: Pyelonephritis CT abdomen and pelvis with contrast Comparison: None provided Findings: There are mild dependent hypoventilatory changes. No focal pulmonary infiltrates or pleural effusions. No focal organ mass lesions. There is mild gallbladder distention. Pancreatic duct is borderline prominent measuring 2.2 mm. There is mild inhomogeneous enhancement of the kidneys. No perirenal fluid collections abscesses. No hydronephrosis no visualized renal calculi No bowel obstruction, pneumoperitoneum, or pneumatosis. There is a moderate colonic fecal load. The appendix is unremarkable. There are multiple intra-abdominal surgical clips. There is mild distended bladder. There is mild bladder wall thickening. Pelvic contents otherwise unremarkable. Normal appendix. There are multiple intra-abdominal surgical clips. The bones are intact. There are mild bilateral SI joint erosions in mild sclerosis [id number]. There is no free fluid. No enlarged intra-abdominal lymph nodes IMPRESSION: Mild bladder distention, mild wall thickening suspicious for cystitis correlate with clinical history and urinalysis Mild bilateral inhomogeneous renal enhancement which may be secondary to timing of the contrast bolus and/or mild pyelonephritis Nonspecific mild gallbladder distention correlate with clinical history and physical exam; if there is clinical concern for acute or chronic cholecystitis right upper quadrant ultrasound could be performed. Mild pancreatic duct dilation no visualized pancreatic lesions if there is clinical concern further evaluation with MRI abdomen MRCP could be performed. Comparison to prior imaging recommended if available Bilateral sacroiliitis Multiple intra-abdominal surgical clips Moderate colonic fecal load This document has been electronically signed by: Padilla Bai MD on 03/09/2025 05:32:36 Dictated By: Padilla Bai MD Signed By: <Electronically signed by Padilla Bai MD in OV> 03/09/25 0533 DD/ 1 TD/TT: 03/09/25531 Graduate Assistant Athletic Trainer: Assessment and Plan (1) Abdominal pain: Status: Acute Plan 39-year-old female coming in with the abdominal pain little septic picture improved now with white count better question etiology for all of this. Is being treated for pyelonephritis with antibiotics. Clinically it does not seem that she has cholecystitis although she has a little tender in the right upper quadrant. She may have some degree of biliary colic. I think that as she is being treated for the pyelonephritis with IV antibiotics this would help with any potential cholecystitis. She is certainly not sick enough to necessitate laparoscopic cholecystectomy. Today she was able to eat without any significant issues. We will follow along. Procedures Date of Service Date of Service: 03/10/25
[2025-03-10 19:47] VITALS: BP 119/77; PULSE 59; RESP 16; TEMP 36.3; O2SAT 100
[2025-03-10] MEDS: 0.9 % Sodium Chloride Flush 3 ML SYRINGE IVFLUSH (21:50)
[2025-03-11 04:00] VITALS: BP 118/71; PULSE 69; RESP 17; TEMP 36.1; O2SAT 99
[2025-03-11] MEDS: metroNIDAZOLE/NS 500 MG/100 ML PIGGYBACK 100 MG IV (05:25)
[2025-03-11 06:26] LABS: Hematocrit 36.6 % (37.0-47.0); Hemoglobin 12.0 g/dl (12.0-16.0); Mean Corpuscular HGB Conc 32.8 g/dl (31.0-35.0); Mean Corpuscular Hemoglobin 31.6 pg (27.0-33.0); Mean Corpuscular Volume 96.3 fL (80.0-98.0); NRBC Abs Auto 0.000 X10*3/uL (0.0-0.012); NRBC Pct Auto 0.0 /100WBC (0.0-0.2); Platelet Count 175 X10*3/uL (160-400); Red Blood Count 3.80 X10*6/uL (4.20-5.50); White Blood Count 6.3 X10*3/uL (4.8-10.8)
[2025-03-11 06:41] LABS: Anion Gap 11 (12-20); Blood Urea Nitrogen 3 mg/dL (9-16); Calcium 8.6 mg/dL (8.4-10.2); Carbon Dioxide 30 mmol/L (22-29); Chloride 107 mmol/L (96-108); Creatinine Clr Calc Pharmacy 107.0; Estimated Glomerular Filt Rate > 60; Potassium 3.5 mmol/L (3.3-5.1); Sodium 144 mmol/L (135-145)
[2025-03-11 07:31] VITALS: BP 140/80; PULSE 58; RESP 16; TEMP 36.2; O2SAT 100
[2025-03-11] MEDS: Nicotine 21 MG PATCH.TD24 TRANSDERMA (09:56)
--- NOTE | 2025-03-11 11:29 | P.DS_ITS ---
DS: Providers Provider Date of Service: 03/11/25 Date of admission: 03/09/25 02:40 Date of discharge: 03/11/25 Primary care physician: Unknown Physician Consults: 03/09/25 06:29 Consult to Gastroenterology Routine Consulting [place] [facility] Reason for consultation: dilated pancreatic duct Consult to General Surgery Routine Consulting Provider[place] [facility] Reason for consultation: suspected acute cholecystitis DS: Diagnosis Discharge Diagnosis (1) Abdominal pain: Status: Acute DS: Summary Hospital Course Hospital Course: From admission HPI: Date of Service: 03/09/25 Chief Complaint: Nausea/vomiting 39-year-old female with no significant past medical history presented to the hospital today with a chief complaint of generalized weakness. Patient reports over the past couple days she has been not feeling well. Has been having generalized weakness and subjective fevers. Reports having abdominal discomfort associated nausea. Patient denies any sick contacts. Denies any urinary discomfort. Patient denies any chest pain or palpitations. Denies any headaches or blurry visions. Review of all other systems is negative except mentioned above ER course: Per ER team, patient on presentation noted to be having mild abdominal tenderness; reported having nonbilious vomiting; in the ER patient noted to be hypothermic placed on Betsy Hugger with improvement in temperature. On labs noted to have leukocytosis and lactic acidosis. Concern for sepsis. Has UTI. Given antibiotics. And IV fluids. Blood pressure is stable. Hospital course Pt was admitted to the hospital for acute pyelonephritis meeting sepsis with severe features including tachycardia, significant leukocytosis of 24.1, and lactic acidosis of 3.3 that resolved with IVF. Pt was treated empirically with IV ceftriaxone and metronidazole as imaging was suggestive of acute pyelonephritis as well as nonspecific gallbladder wall thickening with question cholecystitis and pancreatic duct dilation. Pt underwent MRCP that showed mild dilation of main pancreatic duct of up to 5.6 mm, otherwise normal without evidence of pancreatitis. Pt underwent ultrasound of RUQ that showed normal gallbladder without acute process. The pt was seen and evaluated by both GI and General surgery who thought no acute intervention necessary at this time as pt was without N/V. Patient's urine culture ultimately was negative, however urinalysis appears grossly infected and CT imaging with suggestions of both cystitis and pyelonephritis; as such, will empirically treat for pyelonephritis. Patient's symptoms have greatly improved and pt has been tolerating a solid without nausea, vomiting, or significant abdominal pain. Pt wishes to be discharged home. She will be discharged on cefuroxime 500 mg b.i.d. times 11 days. Pt is not on any other home medications. She should follow up with primary care in 1 week for routine post hospitalization visit. She should also follow up with Dr. Prasad in GI for further evaluation of pancreas with EUS outpatient. Additional details concerning hospitalization as indicated below. Likely acute pyelonephritis with SIRS with severe features Met sirs criteria with tachycardia, leukocytosis, lactic acid 3.3 CT abdomen pelvis showed findings concerning for cystitis/pyelonephritis UA looks grossly positive with nitrites, leukocyte esterase, WBCs >50, 4+ bacteria However, urine culture without growth Continued to be empirically treated as pyelo with ceftriaxone x3 days Analgesics for pain management Question of acute cholecystitis vs pancreatitis CT also showing nonspecific gallbladder wall thickening and pancreatic duct dilation MRCP showed mild dilation of main pancreatic duct up to 5.6 mm, otherwise normal; no evidence of pancreatitis LFTs, lipase WNL Will get US of abdomen to check for radio-opaque stones Continue empiric ceftriaxone, Flagyl BCx negative at 24 hours Pain control, IV fluids as above GI consulted, recommend checking CEA and CA 19, as well as further evaluation of pancreas with EUS outpatient Diet advanced to full Constipation: Bowel regimen Bilateral sacroiliitis: Pain control Time Attestation Discharge Coordination Time (in mins): 35 Quality: Safe Use of Opioids Does Pt have an Active Cancer Diagnosis on the Problem List?: No Quality: Stroke Does the patient have a stroke diagnosis?: No Physical Exam Exam: Exam: General: AOx3, no acute distress Resp: CTA bilaterally CVS: S1, S2, RRR GI: +BS, no distention, minimal right-sided discomfort Skin: Warm, dry Neuro: Cranial nerves II-XII grossly intact bilaterally. Motor grossly intact bilaterally Extremities: No edema Psych: Appropriate affect Vital Signs: Vital Signs: Last Vital Signs Temp 97.2 F 03/11/25 07:31 Pulse 58 03/11/25 07:31 Resp 16 03/11/25 07:31 BP 140/80 H 03/11/25 07:31 Pulse Ox 100 03/11/25 07:31 O2 Del Method Room Air 03/11/25 07:31 BMI result Body Mass Index 28.5 DS: Data Data Completed and Pending Labs on day of discharge: Laboratory Results - last 24 hr 03/11/25 06:15 WBC 6.3 RBC 3.80 L Hgb 12.0 Hct 36.6 L MCV 96.3 MCH 31.6 MCHC 32.8 RDW 11.9 Plt Count 175 MPV 9.7 Absolute Nucleated RBC 0.000 Nucleated RBC % (auto) 0.0 Sodium 144 Potassium 3.5 Chloride 107 Carbon Dioxide 30 H Anion Gap 11 L BUN 3 L Creatinine 0.65 Estim Creat Clear Calc 107.0 Estimated GFR > 60 Random Glucose 87 Calcium 8.6 D Preliminary micro results at discharge 03/09/25 01:41 Blood Culture - Preliminary Blood - Venous No growth after 48 hours. 03/09/25 01:26 Blood Culture - Preliminary Blood - Venous No growth after 48 hours. Discharge Plan Discharge Anticipated Discharge Date/Time: 03/11/25 11:10 Patient Disposition: Home, Self-Care Discharge Diagnosis: Acute pyelonephritis with sepsis Referrals: Physician,Kaela J [Primary Care Provider, Medical] - 1 Week Discharge Medications: New cefuroxime axetil 500 mg tablet 500 mg PO Q12H Qty: 22 0RF Rx Instructions: Take one tablet twice a day with food for the next 11 days, starting the morning of 03/12 and ending the evening of 03/12 Continued multivitamin Tablet 1 tab PO DAILY Discharge Orders: Discharge Order (Routine); Ordered 03/11/25 Ordered By: Tracey Lares Activity on Discharge: As tolerated Stand Alone Forms: Patient Portal Discharge page, Work/School Release Print Language: Divehi Care Plan Goals: See below Health Concerns: UTI Pyelonephritis Sepsis Dilated pancreatic duct Plan of Treatment: You were admitted to the hospital for acute pyelonephritis meeting sepsis criteria for which you were treated with IV antibiotics. Imaging was also suggestive of possible acute cholecystitis vs pancreatitis due to possible distended gallbladder as well as dilated pancreatic duct.. You underwent additional imaging including MRCP and abdominal ultrasound both of which were negative for any acute process. You were also seen and evaluated by both GI and General surgery were no acute intervention was necessary. You responded well to IV antibiotics with resolution of abdominal pain. You were able to tolerate a solid diet, and currently feel ready to be discharged. He will be discharged oral antibiotics, -- take cefuroxime 500 mg twice a day with food for the next 11 days, starting on 03/12 and ending on 03/22 -- follow up with Dr. Prasad in GI for further evaluation of pancreas with EUS outpatient -- follow up with PCP in 1 week for routine post hospitalization visit Assessment: See discharge summary Patient Instructions: Urinary Tract Infection in Women (DC) Discharge Date/Time: 03/11/25 11:42
--- NOTE | 2025-03-11 11:34 | MHC.CM.PN ---
Patient discharged to home self care. Patient has arranged for a ride home.
[2025-03-11 11:40] VITALS: BP 134/84; PULSE 59; RESP 12; TEMP 36.4; O2SAT 98
== END 2025-03-11 11:42 | disposition home or self-care (01) | DRG 720 ==
LOC: HO.ED 02:51 → HO.EDOVER 02:52 → HO.S3 15:36
PROVIDERS: Physician Assistant Medical; Admitting Provider Hospitalist; Emergency Provider Emergency Medicine; Visit Provider Student in an Organized Health Care Education/Training Program
DX: A41.9 Sepsis, unspecified organism (principal); K81.0 Acute cholecystitis; E86.0 Dehydration; F17.210 Nicotine dependence, cigarettes, uncomplicated; Z71.6 Tobacco abuse counseling; N10 Acute pyelonephritis; K59.00 Constipation, unspecified; M46.1 Sacroiliitis, not elsewhere classified; Z20.822 Contact with and (suspected) exposure to COVID-19; Z79.899 Other long term (current) drug therapy
CPT/HCPCS: 36415; 74177; 74181; 76705; 80048; 80053; 81001; 82378; 83605; 83690; 83735; 84702; 85007; 85025; 85027; 86301; 87040; 87086; 87502; 87635; 99285; J0131; J0696; J1171; J1650; J1836; J1885; J2405; J7120; Q9967

== ENCOUNTER 2025-03-09 02:40 | Outpatient (BNV) | payer OTHER, SELFPAY | END 2025-03-11 07:42 | PROVIDERS: Admitting Provider Hospitalist; Emergency Provider Emergency Medicine; Visit Provider Radiology Vascular & Interventional Radiology | DX: K82.8 Other specified diseases of gallbladder (principal) | CPT/HCPCS: 76705 ==

== ENCOUNTER → 2025-03-09 02:40 | Outpatient (BNV) | payer OTHER, SELFPAY | PROVIDERS: Admitting Provider Hospitalist; Emergency Provider Emergency Medicine; Visit Provider Student in an Organized Health Care Education/Training Program | DX: N12 Tubulo-interstitial nephritis, not specified as acute or chronic (principal); A41.9 Sepsis, unspecified organism | CPT/HCPCS: 99223; 99233; 99499 ==

== ENCOUNTER → 2025-03-09 02:40 | Outpatient (BNV) | payer OTHER, SELFPAY | PROVIDERS: Admitting Provider Hospitalist; Emergency Provider Emergency Medicine; Visit Provider Internal Medicine Gastroenterology | DX: A41.9 Sepsis, unspecified organism (principal); K86.89 Other specified diseases of pancreas | CPT/HCPCS: 99222 ==

== ENCOUNTER → 2025-03-09 02:40 | Outpatient (BNV) | payer OTHER, SELFPAY | PROVIDERS: Admitting Provider Hospitalist; Emergency Provider Emergency Medicine; Visit Provider Surgery | DX: R10.9 Unspecified abdominal pain (principal) | CPT/HCPCS: 99222 ==